=== PATIENT | female | born 1990 | race American Indian/Alaskan Native ===

== ENCOUNTER 2016-10-28 01:16 | Inpatient (IN) | payer OTHER ==
[2016-10-28] MEDS: Albuterol-Ipratrop 3 mg / 0.5 (3 ml) UD IH SCH ×2 (02:15→02:30)
[2016-10-28] MEDS ORDERED: Albuterol-Ipratrop 3 mg / 0.5 (3 ml) UD ONE (02:26)
[2016-10-28 02:39] LABS: BASO % 0.7 % (0.0-2.0); EOS # 0.1 K/uL (0.0-0.7); EOS % 0.9 % (0.0-4.0); HEMATOCRIT 27.3 % (34.0-47.0); LYMPH # 1.8 K/uL (1.0-4.3); LYMPH % 26.8 % (20.0-40.0); MEAN CELL VOLUME 73.5 fL (81.0-99.0); MEAN CORPUSCULAR HGB CONC 29.9 g/dL (33.0-37.0); MEAN PLATELET VOLUME 8.8 fL (7.2-11.7); MONO # 0.6 K/uL (0.0-0.8); MONO % 9.3 % (0.0-10.0); RED CELL DISTRIBUTION WIDTH 20.1 % (11.5-14.5); WHITE BLOOD COUNT 6.6 K/uL (4.8-10.8)
[2016-10-28 02:41] LABS: CHLORIDE 108 mmol/L (98-107); POTASSIUM 3.8 mmol/L (3.6-5.2); SODIUM 144 mmol/L (132-148)
[2016-10-28 02:43] LABS: ALKALINE PHOSPHATASE 65 U/L (38-126); ALT/SGPT 9 U/L (9-52); AST/SGOT 22 U/L (14-36); BILIRUBIN,TOTAL 0.4 mg/dL (0.2-1.3); BLOOD UREA NITROGEN 7 mg/dL (7-17); CARBON DIOXIDE 21 mmol/L (22-30); GFR AFRICAN-AMERICAN > 60; TOTAL PROTEIN 8.2 g/dL (6.3-8.3)
[2016-10-28 02:44] LABS: CALCIUM 8.6 mg/dl (8.6-10.4); GLUCOSE,RANDOM 107 mg/dL (65-105)
[2016-10-28] MEDS ORDERED: Sodium Chloride 0.9% 1,000 ML IV STA (03:28)
[2016-10-28] MEDS ORDERED: Sodium Chloride 0.9% 1,000 ML ONE ×2 (03:34→05:44)
[2016-10-28] MEDS ORDERED: Sodium Chloride 0.9% 1,000 ML IV ONE (05:35)
--- NOTE | 2016-10-28 05:37 | C.PDOC ---
History Of Present Illness 26 year old female presents to the ED with complaints of chest tightness and shortness of breath since 11pm last night. Patient notes a history of chronic bronchitis but the current symptoms "feel different." She denies prolonged palpitations, recent travel, leg pain, injury, or the use of OCP. Time Seen by Provider: 10/28/16 01:40 Chief Complaint (Nursing): Chest Pain History Per: Patient History/Exam Limitations: no limitations Onset/Duration Of Symptoms: Hrs Current Symptoms Are (Timing): Still Present Recent travel outside of the [place]: No Past Medical History Reviewed: Historical Data, Nursing Documentation, Vital Signs Vital Signs: Last Vital Signs Temp 98.7 F 10/28/16 06:30 Pulse 107 H 10/28/16 06:30 Resp 20 10/28/16 06:30 BP 108/72 10/28/16 06:30 Pulse Ox 100 10/28/16 06:30 - Medical History PMH: Anemia, Bronchitis Family History: States: Unknown Family Hx - Social History Hx Alcohol Use: No Hx Substance Use: No - Immunization History Hx Tetanus Toxoid Vaccination: No Hx Influenza Vaccination: No Hx Pneumococcal Vaccination: No Review Of Systems Constitutional: Negative for: Fever, Chills, Weakness Eyes: Negative for: Vision Change Cardiovascular: Positive for: Other (chest tightness). Negative for: Palpitations, Light Headedness Respiratory: Positive for: Shortness of Breath. Negative for: Cough Gastrointestinal: Negative for: Nausea, Vomiting Neurological: Negative for: Weakness, Numbness Physical Exam - Physical Exam Appears: Non-toxic, No Acute Distress Skin: Warm, Dry Head: Atraumatic Eye(s): bilateral: PERRL, Conjunctiva Pale Oral Mucosa: Moist Throat: Normal Neck: Supple Chest: Symmetrical, No Deformity Cardiovascular: Rhythm Regular, No Murmur, Other (tachycardic ) Respiratory: Decreased Breath Sounds (slightly minimally dimished breath sounds ), No Rales, No Rhonchi, No Wheezing Gastrointestinal/Abdominal: Soft, No Tenderness Rectal: Other (brown stool, no gross blood ) Extremity: Normal ROM, No Tenderness Neurological/Psych: Oriented x3 Gait: Steady ED Course And Treatment - Laboratory Results Result Diagrams: 10/28/16 02:29 10/28/16 02:29 ECG Rhythm: Sinus Rhythm (100 bpm) O2 Sat by Pulse Oximetry: 100 (room air ) Pulse Ox Interpretation: Normal Progress Note: Duonebs given x 2. Pt became tachycardic at 137. Labs were performed. Patient has a hemoglobin (Hb) 8.2, patient was hydrated with fluids with improvement of tachycardia. Pt will be admitted for symptomatic anemia - Physician Consult Information Time Consulting Physician Contacted: 04:30 Physician Contacted: Erwin Brock Outcome Of Conversation: Plan for admission was discussed with Dr. Brock and agrees to admit patient to services. Disposition - Disposition Disposition: HOME/ ROUTINE Disposition Time: 05:35 Condition: STABLE - Clinical Impression Clinical Impression: Symptomatic anemia - Scribe Statement The provider has reviewed the documentation as recorded by the Scribe Vanessa Boyer All medical record entries made by the Scribe were at my direction and personally dictated by me. I have reviewed the chart and agree that the record accurately reflects my personal performance of the history, physical exam, medical decision making, and the department course for this patient. I have also personally directed, reviewed, and agree with the discharge instructions and disposition. Decision To Admit - Pt Status Changed To: Hospital Disposition Of: Inpatient - Admit Certification Admit to Inpatient:: After my assessment, the patient will require hospitalization for at least two midnights. This is because of the severity of symptoms shown, intensity of services needed, and/or the medical risk in this patient being treated as an outpatient. - InPatient: Physician Admission Certification: I certify that this patient requires 2 or more midnights of care for the following reason:: Symptomatic anemia - . Bed Request Type: Regular Patient Diagnosis: Symptomatic anemia
--- NOTE | 2016-10-28 06:34 | CP.PCM.HP ---
<Jeremiah Markham - Last Filed: 10/28/16 07:36> History of Present Illness - History of Present Illness History of Present Illness: CC: Chest pain and SOB HPI: Mrs Tom is a 26 yo female who presents to the ED with worsening chest pain and SOB which started last night at 11pm. The chest pain is midsternal and reproducible with palpation. It does not radiate. She rated the pain 10/10. She states that she was sitting down when the pain began. She stated that cold air exacerbates her symptoms. She admits to diaphoresis and being lightheaded. She denies fever, chills, abd pain, headache, nausea, vomiting, diarrhea. She also endorsed a cough which started about a week ago. It is productive with yellow phlegm; she thinks she may have occasionally seen streaks of blood in the phlegm. PMD: n/a PMHx: syncopal episode 2006, 2011; hx of heart murmur that is no longer present PSHx: n/a Medications: n/a Allergies: seasonal FamHx:Mother is anemic and has a heart murmur; Father has asthma/bronchitis; Sister has a heart murmur SocialHx: denies smoking, denies drinking; Lives with uncle at his home; Moved to [place] from [place] in August 2016; Currently not working ObgynHx: last menstrual period concluded 7 days ago; occasional heavy bleeder; no control Present on Admission - Present on Admission Any Indicators Present on Admission: No Review of Systems - Review of Systems Systems not reviewed;Unavailable: Unstable Vital Signs - Constitutional Constitutional: absent: Chills, Fever, Headache - EENT Eyes: absent: Blurred Vision, Change in Vision Ears: absent: Ear Pain Nose/Mouth/Throat: absent: Sore Throat - Cardiovascular Cardiovascular: Chest Pain, Chest Pain at Rest, Diaphoresis, Dyspnea, Palpitations, Rapid Heart Rate. absent: Irregular Heart Rhythm, Leg Edema, Pedal Edema - Respiratory Respiratory: Cough, Dyspnea. absent: Wheezing - Gastrointestinal Gastrointestinal: absent: Abdominal Pain, Diarrhea, Nausea, Vomiting - Genitourinary Genitourinary: absent: Dysuria - Menstruation Menstruation: Menses 1-7 Days - Musculoskeletal Musculoskeletal: absent: Muscle Cramps, Muscle Weakness - Integumentary Integumentary: absent: Bleeding Lesions - Neurological Neurological: absent: Behavioral Changes, Headaches - Psychiatric Psychiatric: absent: Behavioral Changes Past Patient History - Past Social History Smoking Status: Never Smoked - PULMONARY Hx Bronchitis: Yes - PSYCHIATRIC Hx Substance Use: No Meds Allergies/Adverse Reactions: Allergies Allergy/AdvReac Type Severity Reaction Status Date / Time Penicillins Allergy Verified 10/28/16 01:26 Physical Exam - Constitutional Appears: Well, Non-toxic, No Acute Distress - Head Exam Head Exam: NORMAL INSPECTION - Eye Exam Eye Exam: EOMI, Normal appearance Pupil Exam: PERRL - ENT Exam ENT Exam: Mucous Membranes Moist, Normal Exam - Neck Exam Neck exam: Positive for: Full Rom, Normal Inspection - Respiratory Exam Respiratory Exam: Clear to Auscultation Bilateral, NORMAL BREATHING PATTERN. absent: Rales, Rhonchi, Wheezes - Cardiovascular Exam Cardiovascular Exam: Tachycardia, REGULAR RHYTHM, +S1, +S2. absent: Systolic Murmur - GI/Abdominal Exam GI & Abdominal Exam: Normal Bowel Sounds, Soft. absent: Tenderness - Rectal Exam Rectal Exam: Deferred - Extremities Exam Extremities exam: Positive for: normal inspection. Negative for: calf tenderness, pedal edema, tenderness - Neurological Exam Neurological exam: Alert, Oriented x3 - Psychiatric Exam Psychiatric exam: Normal Affect, Normal Mood - Skin Skin Exam: Dry, Intact, Normal Color, Warm Results - Vital Signs Recent Vital Signs: Last Vital Signs Temp 98.8 F 10/28/16 06:18 Pulse 101 H 10/28/16 06:18 Resp 20 10/28/16 06:18 BP 109/73 10/28/16 06:18 Pulse Ox 99 10/28/16 06:18 - Labs Result Diagrams: 10/28/16 02:29 10/28/16 02:29 Labs: Laboratory Results - last 24 hr 10/28/16 05:36 Blood Type AB POSITIVE Antibody Screen Negative Assessment & Plan (1) Symptomatic anemia Assessment and Plan: Hgb 8.2 FamHx of anemia FOBT negative ferrous sulfate 325mg po daily TIBC, Iron Sat, Ferritin, f/u TSH, ESR, C-reactive protein Tramadol 25mg q8 po prn Status: Acute (2) Shortness of breath Assessment and Plan: Prior visits to hospital for bronchitis chronic cough with production of phlegm On nasal cannula 2L O2sat 99%, currently not c/o of SOB Chest xray in ED possibly indicative of bronchitis Received Duoneb and Prednisone in ED Azithromax 250mg po daily albuterol 2.5mg inh q6 prn prednisone 40mg po daily Status: Acute (3) Prophylactic measure Assessment and Plan: Pepcid 20mg po daily Regular Diet activity as tolerated Status: Acute <Erwin Brock P - Last Filed: 11/01/16 06:27> Results - Vital Signs Recent Vital Signs: Last Vital Signs Temp 97.9 F 10/29/16 15:00 Pulse 70 10/29/16 15:00 Resp 20 10/29/16 15:00 BP 99/65 L 10/29/16 15:00 Pulse Ox 98 10/29/16 15:00 - Labs Result Diagrams: 10/29/16 07:09 10/29/16 07:09 Attending/Attestation - Attestation I have personally seen and examined this patient.: Yes I have fully participated in the care of the patient.: Yes I have reviewed all pertinent clinical information: Yes
[2016-10-28] MEDS ORDERED: Albuterol 0.083% Inhal Sol (2.5 mg/3 mL) UD INH PRN (07:33)
[2016-10-28 10:54] VITALS: RESP 20
[2016-10-28] MEDS: Tramadol 25 mg PO SCH ×3 (10:55→17:14)
--- NOTE | 2016-10-28 11:09 | RAD ---
HISTORY: chest pain, SOB COMPARISON: No prior. TECHNIQUE: Chest PA and lateral FINDINGS: LUNGS: The lungs are well inflated and clear. PLEURA: No significant pleural effusion identified. No pneumothorax apparent. CARDIOVASCULAR: Normal. OSSEOUS STRUCTURES: No significant abnormalities. VISUALIZED UPPER ABDOMEN: Normal. OTHER FINDINGS: None. IMPRESSION: No active pulmonary disease.
[2016-10-28 11:45] LABS: IRON 16 ug/dL (37-170)
[2016-10-28 12:18] LABS: THYROID STIMULATING HORMONE 0.21 mIU/L (0.46-4.68)
--- NOTE | 2016-10-28 21:18 | CP.PCM.PN ---
<Carlos Sanchez E - Last Filed: 10/28/16 21:30> Subjective - Date & Time of Evaluation Date of Evaluation: 10/28/16 Time of Evaluation: 10:30 - Subjective Subjective: Medicine Note (PGY 1) : Dr. Kate's service Patient was seen and examined at bedside. Patient reports fatigue, sob, chest pain and cough but denies nausea, vomiting, abd pain, diarrhea, fever, chills. Patient tolerates diet. Objective - Vital Signs/Intake and Output Vital Signs (last 24 hours): Temp Pulse Resp BP Pulse Ox 98 F 122 H 20 122/71 99 10/28/16 16:01 10/28/16 16:01 10/28/16 16:01 10/28/16 16:01 10/28/16 16:01 Intake and Output: 10/28/16 10/29/16 18:59 06:59 Intake Total 400 Balance 400 - Medications Medications: Current Medications Albuterol Sulfate (Albuterol 0.083% Inhal Viji (2.5 Mg/3 Ml) Ud) 2.5 mg INH RQ6 PRN PRN Reason: Shortness of Breath Aspirin (Aspirin) 325 mg PO DAILY [facility] Azithromycin (Zithromax) 250 mg PO DAILY [facility] Last Admin: 10/28/16 10:56 Dose: 250 mg Famotidine (Pepcid) 20 mg PO DAILY [facility] Last Admin: 10/28/16 10:55 Dose: 20 mg Ferrous Sulfate (Feosol) 325 mg PO DAILY [facility] Last Admin: 10/28/16 10:56 Dose: 325 mg Heparin Sodium (Porcine) (Heparin) 5,000 units SC Q8 [facility] Last Admin: 10/28/16 21:08 Dose: Not Given Pneumococcal Polyvalent Vaccine (Pneumovax 23 Vaccine) 0.5 ml IM .ONCE ONE Stop: 10/30/16 10:01 Prednisone (Prednisone Tab) 40 mg PO DAILY [facility] Last Admin: 10/28/16 10:56 Dose: 40 mg Tramadol HCl (Ultram) 25 mg PO TID [facility] Last Admin: 10/28/16 17:14 Dose: Not Given - Constitutional Appears: Well, No Acute Distress - Eye Exam Eye Exam: EOMI, Normal appearance - ENT Exam ENT Exam: Mucous Membranes Moist, Normal Exam - Respiratory Exam Respiratory Exam: Clear to Ausculation Bilateral, NORMAL BREATHING PATTERN - Cardiovascular Exam Cardiovascular Exam: REGULAR RHYTHM, +S1, +S2 - GI/Abdominal Exam GI & Abdominal Exam: Soft, Normal Bowel Sounds - Extremities Exam Extremities Exam: Normal Capillary Refill, Normal Inspection - Neurological Exam Neurological Exam: Alert, Awake, Oriented x3 - Psychiatric Exam Psychiatric exam: Normal Affect, Normal Mood - Skin Skin Exam: Dry, Normal Color, Warm Assessment and Plan (1) Symptomatic anemia Assessment & Plan: Hgb 8.2, Hematocrit: 27.3 FamHx of anemia FOBT negative ferrous sulfate 325mg po daily TIBC : 398, Iron Sat: 4 Ferritin: 3.6 TSH : 0.21, Pending ESR, C-reactive protein Tramadol 25mg q8 po prn Monitor H/H Status: Acute (2) Shortness of breath Assessment & Plan: Prior visits to hospital for bronchitis chronic cough with production of phlegm On nasal cannula 2L O2sat 99%, currently not c/o of SOB Chest xray in ED possibly indicative of bronchitis Received Duoneb and Prednisone in ED Azithromax 250mg po daily albuterol 2.5mg inh q6 prn prednisone 40mg po daily Status: Acute (3) Chest pain Assessment & Plan: EKG : NSR AMA (Negative x2) Alleviated with Tramadol 25 mg PO tid Status: Acute (4) Prophylactic measure Assessment & Plan: Pepcid 20mg po daily Heparin 5000 units SC Q8H Regular Diet activity as tolerated SCD Status: Acute <Patel Kate - Last Filed: 12/04/16 15:57> Objective - Vital Signs/Intake and Output Vital Signs (last 24 hours): Temp Pulse Resp BP Pulse Ox 97.9 F 70 20 99/65 L 98 10/29/16 15:00 10/29/16 15:00 10/29/16 15:00 10/29/16 15:00 10/29/16 15:00 - Labs Labs: 10/29/16 07:09 10/29/16 07:09 Attending/Attestation - Attestation I have personally seen and examined this patient.: Yes I have fully participated in the care of the patient.: Yes I have reviewed all pertinent clinical information, including history, physical exam and plan: Yes Notes (Text): Patient seen and examined with the resident. Agree with the residents evaluation, assessment and plan. Symptomatic anemia Shortness of breath - acute on chronic bronchitis. Chest pain
[2016-10-28] MEDS ORDERED: Tramadol 25 mg PO PRN (22:51)
[2016-10-29 03:40] VITALS: O2SAT 98
[2016-10-29 07:20] LABS: HEMATOCRIT 25.5 % (34.0-47.0); MEAN CELL VOLUME 73.8 fL (81.0-99.0); MEAN CORPUSCULAR HEMOGLOBIN 22.2 pg (27.0-31.0); MEAN CORPUSCULAR HGB CONC 30.1 g/dL (33.0-37.0); RED CELL DISTRIBUTION WIDTH 20.4 % (11.5-14.5); WHITE BLOOD COUNT 8.3 K/uL (4.8-10.8)
[2016-10-29 07:37] LABS: CHLORIDE 108 mmol/L (98-107); SODIUM 141 mmol/L (132-148)
[2016-10-29 07:39] LABS: BILIRUBIN,TOTAL 0.4 mg/dL (0.2-1.3); GFR AFRICAN-AMERICAN > 60
[2016-10-29 07:40] LABS: ALKALINE PHOSPHATASE 57 U/L (38-126); ALT/SGPT 13 U/L (9-52); AST/SGOT 17 U/L (14-36); BLOOD UREA NITROGEN 4 mg/dL (7-17); CARBON DIOXIDE 23 mmol/L (22-30); GLUCOSE,RANDOM 100 mg/dL (65-105); TOTAL PROTEIN 7.4 g/dL (6.3-8.3)
[2016-10-29 07:41] LABS: CALCIUM 8.8 mg/dl (8.6-10.4); MAGNESIUM 2.1 mg/dL (1.6-2.3); PHOSPHOROUS 3.7 mg/dL (2.5-4.5)
[2016-10-29 09:27] LABS: MONO # 0.3 K/uL (0.0-0.8)
--- NOTE | 2016-10-29 14:04 | CARD ---
APPROVED REPORT EKG Measurement Heart [id number] <Conclusion> Normal sinus rhythm Normal ECG
[2016-10-29 16:09] VITALS: BP 99/65; PULSE 70; TEMP 97.9
[2016-10-30] MEDS ORDERED: Pneumococcal 23-Valent Vaccine IM ONE (10:00)
--- NOTE | 2016-10-30 21:38 | CP.PCM.DIS ---
<Jeremiah Markham - Last Filed: 10/30/16 21:34> Provider - Provider Date of Admission: 10/28/16 05:22 Attending physician: Erwin Brock MD Primary care physician: Does not have one Time Spent in preparation of Discharge (in minutes): 45 Diagnosis - Discharge Diagnosis (1) Symptomatic anemia Status: Acute (2) Shortness of breath Status: Acute (3) Prophylactic measure Status: Acute Hospital Course - Lab Results Lab Results: Most Recent Lab Values WBC 8.3 K/uL (4.8-10.8) 10/29/16 07:09 RBC 3.45 Mil/uL (3.80-5.20) L 10/29/16 07:09 Hgb 7.7 g/dL (11.0-16.0) L 10/29/16 07:09 Hct 25.5 % (34.0-47.0) L 10/29/16 07:09 MCV 73.8 fL (81.0-99.0) L 10/29/16 07:09 MCH 22.2 pg (27.0-31.0) L 10/29/16 07:09 MCHC 30.1 g/dL (33.0-37.0) L 10/29/16 07:09 RDW 20.4 % (11.5-14.5) H 10/29/16 07:09 Plt Count 241 K/uL (130-400) 10/29/16 07:09 MPV 9.0 fL (7.2-11.7) 10/29/16 07:09 Neut % (Auto) 73.0 % (50.0-75.0) 10/29/16 07:09 Lymph % (Auto) 24.0 % (20.0-40.0) 10/29/16 07:09 [place] % (Auto) 3.0 % (0.0-10.0) 10/29/16 07:09 Eos % (Auto) 0.0 % (0.0-4.0) 10/29/16 07:09 Baso % (Auto) 0.0 % (0.0-2.0) 10/29/16 07:09 Neut # 6.1 K/uL (1.8-7.0) 10/29/16 07:09 Lymph # 2.0 K/uL (1.0-4.3) 10/29/16 07:09 [place] # 0.3 K/uL (0.0-0.8) 10/29/16 07:09 Eos # 0.0 K/uL (0.0-0.7) 10/29/16 07:09 Baso # 0.0 K/uL (0.0-0.2) 10/29/16 07:09 ESR 37 mm/hr (0-20) H 10/28/16 11:27 D-Dimer, Quantitative < 200 ng/mlDDU (0-243) 10/28/16 02:29 Sodium 141 mmol/L (132-148) 10/29/16 07:09 Potassium 4.0 mmol/L (3.6-5.2) 10/29/16 07:09 Chloride 108 mmol/L (98-107) H 10/29/16 07:09 Carbon Dioxide 23 mmol/L (22-30) 10/29/16 07:09 Anion Gap 13 (10-20) 10/29/16 07:09 BUN 4 mg/dL (7-17) L 10/29/16 07:09 Creatinine 0.6 MG/DL (0.7-1.2) L 10/29/16 07:09 Est GFR ( Amer) > 60 10/29/16 07:09 Est GFR (Non-Af Amer) > 60 10/29/16 07:09 Random Glucose 100 mg/dL (65-105) 10/29/16 07:09 Calcium 8.8 mg/dl (8.6-10.4) 10/29/16 07:09 Phosphorus 3.7 mg/dL (2.5-4.5) 10/29/16 07:09 Magnesium 2.1 mg/dL (1.6-2.3) 10/29/16 07:09 Iron 16 ug/dL (37-170) L 10/28/16 11:27 TIBC 398 ug/dL (250-450) 10/28/16 11:27 % Saturation 4 (20-55) L 10/28/16 11:27 Ferritin 3.6 ng/mL 10/28/16 11:27 Total Bilirubin 0.4 mg/dL (0.2-1.3) 10/29/16 07:09 AST 17 U/L (14-36) 10/29/16 07:09 ALT 13 U/L (9-52) 10/29/16 07:09 Alkaline Phosphatase 57 U/L (38-126) 10/29/16 07:09 Total Creatine Kinase 52 U/L (30-135) 10/29/16 17:39 CK-MB (Mass) < 0.22 ng/mL (0.0-3.38) 10/29/16 17:39 Troponin I < 0.0120 ng/mL (0.00-0.120) 10/28/16 02:29 Troponin I, Quant < 0.0120 ng/mL (0.00-0.120) 10/29/16 17:39 C-React Prot High Sens 0.16 mg/L (1.00-3.00) L 10/28/16 11:27 Total Protein 7.4 g/dL (6.3-8.3) 10/29/16 07:09 Albumin 3.7 g/dL (3.5-5.0) 10/29/16 07:09 Globulin 3.7 gm/dL (2.2-3.9) 10/29/16 07:09 Albumin/Globulin Ratio 1.0 (1.0-2.1) 10/29/16 07:09 TSH 3rd Generation 0.21 mIU/L (0.46-4.68) L 10/28/16 11:27 Stool Occult Blood Negative (NEGATIVE) 10/28/16 04:59 Urine Opiates Screen Negative (NEGATIVE) 10/28/16 16:56 Urine Methadone Screen Negative (NEGATIVE) 10/28/16 16:56 Ur Barbiturates Screen Negative (NEGATIVE) 10/28/16 16:56 Ur Phencyclidine Scrn Negative (NEGATIVE) 10/28/16 16:56 Ur Amphetamines Screen Negative (NEGATIVE) 10/28/16 16:56 U Benzodiazepines Scrn Negative (NEGATIVE) 10/28/16 16:56 U Oth Cocaine Metabols Negative (NEGATIVE) 10/28/16 16:56 U Cannabinoids Screen Negative (NEGATIVE) 10/28/16 16:56 Blood Type AB POSITIVE 10/28/16 05:36 Antibody Screen Negative 10/28/16 05:36 - Hospital Course Hospital Course: HPI: Mrs Tom is a 26 yo female who presents to the ED with worsening chest pain and SOB which started last night at 11pm. The chest pain is midsternal and reproducible with palpation. It does not radiate. She rated the pain 10/10. She states that she was sitting down when the pain began. She stated that cold air exacerbates her symptoms. She admits to diaphoresis and being lightheaded. She denies fever, chills, abd pain, headache, nausea, vomiting, diarrhea. She also endorsed a cough which started about a week ago. It is productive with yellow phlegm; she thinks she may have occasionally seen streaks of blood in the phlegm. PMD: n/a PMHx: syncopal episode 2006, 2011; hx of heart murmur that is no longer present PSHx: n/a Medications: n/a Allergies: seasonal FamHx:Mother is anemic and has a heart murmur; Father has asthma/bronchitis; Sister has a heart murmur SocialHx: denies smoking, denies drinking; Lives with uncle at his home; Moved to [place] from [place] in August 2016; Currently not working ObgynHx: last menstrual period concluded 7 days ago; occasional heavy bleeder; no control Hospital Course: (1) Symptomatic anemia Hgb 8.2, Hematocrit: 27.3 FOBT negative ferrous sulfate 325mg po daily TIBC : 398, Iron Sat: 4 Ferritin: 3.6 TSH : 0.21, Pending ESR, C-reactive protein Tramadol 25mg q8 po prn Monitored H/H (2) Shortness of breath Prior visits to hospital for bronchitis chronic cough with production of phlegm On nasal cannula 2L O2sat 99%, currently not c/o of SOB Chest xray in ED possibly indicative of bronchitis Received Duoneb and Prednisone in ED Azithromax 250mg po daily albuterol 2.5mg inh q6 prn prednisone 40mg po daily (3) Chest pain EKG : NSR AMA (Negative x2) Alleviated with Tramadol 25 mg PO tid Discharge Exam - Head Exam Head Exam: NORMAL INSPECTION - Eye Exam Eye Exam: EOMI, Normal appearance, PERRL - ENT Exam ENT Exam: Mucous Membranes Moist - Neck Exam Neck exam: Full Rom - Respiratory Exam Respiratory Exam: NORMAL BREATHING PATTERN. absent: Rales, Rhonchi, Wheezes - Cardiovascular Exam Cardiovascular Exam: REGULAR RHYTHM, +S1, +S2 - GI/Abdominal Exam GI & Abdominal Exam: Normal Bowel Sounds. absent: Distended, Tenderness - Rectal Exam Rectal Exam: Deferred - Neurological Exam Neurological exam: Alert, Oriented x3, Reflexes Normal - Psychiatric Exam Psychiatric exam: Normal Affect, Normal Mood - Skin Skin Exam: Dry, Intact, Normal Color, Warm Discharge Plan - Discharge Medications Prescriptions: Albuterol HFA [Ventolin HFA 90 mcg/actuation (8 g)] 1 puff IH Q6 PRN #1 inhaler PRN Reason: Shortness Of Breath Ascorbic Acid [Vitamin C 250 mg Tab] 250 mg PO DAILY #30 tab Azithromycin [Z-Ubaldo] 250 mg PO DAILY #3 tab Docusate [Colace] 100 mg PO BID #60 cap Ferrous Sulfate [Feosol] 325 mg PO BID #60 tab - Follow Up Plan Condition: STABLE Disposition: HOME/ ROUTINE Instructions: Iron Supplements (By mouth), Albuterol (By breathing), Azithromycin (By mouth), Laxative, Stool Softeners (By mouth), Ascorbic Acid ( Vitamin C) (By mouth), Chest Pain (DC), Dyspnea (GEN), Anemia (DC) Additional Instructions: Patient is medically stable for discharge. Patient recommended to follow up with [facility] ([phone]) within one week for discharge. Patient recommended to see OB-PROCEDURE RN as outpatient for workup for menorrhagia. Patient will need repeat iron studies upon followup with PMD. New Prescription: 1) albuterol HFA 1puff [id number] prn for sob 2) Z-pack -> use as directed, and take yogurt with medication 3) Ferrous sulfate 325mg po bid (60/no refills) 4) Colace 100mg po BID (60/no refills) If symptoms return please return to ED. Referrals: Marii Adan MD [Staff Provider] - <Viktoria Thompson V - Last Filed: 10/31/16 00:23> Provider - Provider Date of Admission: 10/28/16 05:22 Attending physician: Erwin Brock MD Hospital Course - Lab Results Lab Results: Most Recent Lab Values WBC 8.3 K/uL (4.8-10.8) 10/29/16 07:09 RBC 3.45 Mil/uL (3.80-5.20) L 10/29/16 07:09 Hgb 7.7 g/dL (11.0-16.0) L 10/29/16 07:09 Hct 25.5 % (34.0-47.0) L 10/29/16 07:09 MCV 73.8 fL (81.0-99.0) L 10/29/16 07:09 MCH 22.2 pg (27.0-31.0) L 10/29/16 07:09 MCHC 30.1 g/dL (33.0-37.0) L 10/29/16 07:09 RDW 20.4 % (11.5-14.5) H 10/29/16 07:09 Plt Count 241 K/uL (130-400) 10/29/16 07:09 MPV 9.0 fL (7.2-11.7) 10/29/16 07:09 Neut % (Auto) 73.0 % (50.0-75.0) 10/29/16 07:09 Lymph % (Auto) 24.0 % (20.0-40.0) 10/29/16 07:09 [place] % (Auto) 3.0 % (0.0-10.0) 10/29/16 07:09 Eos % (Auto) 0.0 % (0.0-4.0) 10/29/16 07:09 Baso % (Auto) 0.0 % (0.0-2.0) 10/29/16 07:09 Neut # 6.1 K/uL (1.8-7.0) 10/29/16 07:09 Lymph # 2.0 K/uL (1.0-4.3) 10/29/16 07:09 [place] # 0.3 K/uL (0.0-0.8) 10/29/16 07:09 Eos # 0.0 K/uL (0.0-0.7) 10/29/16 07:09 Baso # 0.0 K/uL (0.0-0.2) 10/29/16 07:09 ESR 37 mm/hr (0-20) H 10/28/16 11:27 D-Dimer, Quantitative < 200 ng/mlDDU (0-243) 10/28/16 02:29 Sodium 141 mmol/L (132-148) 10/29/16 07:09 Potassium 4.0 mmol/L (3.6-5.2) 10/29/16 07:09 Chloride 108 mmol/L (98-107) H 10/29/16 07:09 Carbon Dioxide 23 mmol/L (22-30) 10/29/16 07:09 Anion Gap 13 (10-20) 10/29/16 07:09 BUN 4 mg/dL (7-17) L 10/29/16 07:09 Creatinine 0.6 MG/DL (0.7-1.2) L 10/29/16 07:09 Est GFR ( Amer) > 60 10/29/16 07:09 Est GFR (Non-Af Amer) > 60 10/29/16 07:09 Random Glucose 100 mg/dL (65-105) 10/29/16 07:09 Calcium 8.8 mg/dl (8.6-10.4) 10/29/16 07:09 Phosphorus 3.7 mg/dL (2.5-4.5) 10/29/16 07:09 Magnesium 2.1 mg/dL (1.6-2.3) 10/29/16 07:09 Iron 16 ug/dL (37-170) L 10/28/16 11:27 TIBC 398 ug/dL (250-450) 10/28/16 11:27 % Saturation 4 (20-55) L 10/28/16 11:27 Ferritin 3.6 ng/mL 10/28/16 11:27 Total Bilirubin 0.4 mg/dL (0.2-1.3) 10/29/16 07:09 AST 17 U/L (14-36) 10/29/16 07:09 ALT 13 U/L (9-52) 10/29/16 07:09 Alkaline Phosphatase 57 U/L (38-126) 10/29/16 07:09 Total Creatine Kinase 52 U/L (30-135) 10/29/16 17:39 CK-MB (Mass) < 0.22 ng/mL (0.0-3.38) 10/29/16 17:39 Troponin I < 0.0120 ng/mL (0.00-0.120) 10/28/16 02:29 Troponin I, Quant < 0.0120 ng/mL (0.00-0.120) 10/29/16 17:39 C-React Prot High Sens 0.16 mg/L (1.00-3.00) L 10/28/16 11:27 Total Protein 7.4 g/dL (6.3-8.3) 10/29/16 07:09 Albumin 3.7 g/dL (3.5-5.0) 10/29/16 07:09 Globulin 3.7 gm/dL (2.2-3.9) 10/29/16 07:09 Albumin/Globulin Ratio 1.0 (1.0-2.1) 10/29/16 07:09 TSH 3rd Generation 0.21 mIU/L (0.46-4.68) L 10/28/16 11:27 Stool Occult Blood Negative (NEGATIVE) 10/28/16 04:59 Urine Opiates Screen Negative (NEGATIVE) 10/28/16 16:56 Urine Methadone Screen Negative (NEGATIVE) 10/28/16 16:56 Ur Barbiturates Screen Negative (NEGATIVE) 10/28/16 16:56 Ur Phencyclidine Scrn Negative (NEGATIVE) 10/28/16 16:56 Ur Amphetamines Screen Negative (NEGATIVE) 10/28/16 16:56 U Benzodiazepines Scrn Negative (NEGATIVE) 10/28/16 16:56 U Oth Cocaine Metabols Negative (NEGATIVE) 10/28/16 16:56 U Cannabinoids Screen Negative (NEGATIVE) 10/28/16 16:56 Blood Type AB POSITIVE 10/28/16 05:36 Antibody Screen Negative 10/28/16 05:36 Attending/Attestation - Attestation I have personally seen and examined this patient.: Yes I have fully participated in the care of the patient.: Yes I have reviewed all pertinent clinical information, including history, physical exam and plan: Yes Notes (Text): This is late computer entry for 10/29/16. Patient seen, examined, and case discussed with day-time product development intern. Patient seen and examined with patient's mother at bedside. Patient permitted to speak in front of her mother regarding her medical information Patient reports history of iron deficiency anemia and was told in the past to take iron tablets to supplement iron stories. Patient also reports she has a history of heavy periods, using about 4-5 pads ( soaked), regular and recently finished her period last week. Patient reports she has never seen a fence builder before. Patient reports she is not sexually active. Patient offered pelvis/transvaginal US but refused. Patient's AMA X3 are negative. EKG: NSR. Patient's chest xray shows no active disease. UDS negative. Patient likely has acute bronchitis. Patient afebrile and has not white count. Discussed discharge order and discharge instructions with patient and day-time resident. Patient advised to establish care at the [facility] ( [phone]). Patient recommended to follow up with [facility] ) within one week for discharge. Patient recommended for referral for OB-PROCEDURE RN as outpatient for workup for menorrhagia. Patient advised with iron supplement that it will make her stool look black and to take with orange juice to increase absorption and stool softeners to avoid constipation Patient will need repeat iron studies upon followup with PMD. New Prescription: 1) albuterol HFA 1puff [id number] prn for sob 2) Z-pack -> use as directed, and take yogurt with medication 3) Ferrous sulfate 325mg po bid (60/no refills) 4) Colace 100mg po BID (60/no refills) Discharge Diagnose 1) Bronchitis-->Chest xray negative; Albuterol PRN SOB, Z-pack 2) Chest pain-->resolved 3) Iron Deficiency Anemia-->f/u in the clinic, repeat iron studies, further workup and ob-product assembler referral for menorrhagia This is a summary of patient's hospitalization. Please see EMR for further details.
--- NOTE | 2016-11-05 12:44 | CARD ---
APPROVED REPORT EKG Measurement Heart [id number] <Conclusion> Normal sinus rhythm with sinus arrhythmia Normal ECG
== END 2016-10-29 19:28 | disposition home or self-care (01) | DRG 97 ==
LOC: C.ER 01:16 → C.9E 05:22 → C.6T 06:00
PROVIDERS: ADMIT Internal Medicine; ATTEND Internal Medicine
DX: J20.9 Acute bronchitis, unspecified (principal); D50.9 Iron deficiency anemia, unspecified; J42 Unspecified chronic bronchitis; N92.0 Excessive and frequent menstruation with regular cycle; R07.89 Other chest pain

== ENCOUNTER 2016-11-19 11:23 | Emergency (ER) | payer OTHER ==
[2016-11-19 11:27] VITALS: TEMP 98.6; O2SAT 100
--- NOTE | 2016-11-19 14:21 | RAD ---
PROCEDURE: CHEST RADIOGRAPH, 1 VIEW HISTORY: Chest pain COMPARISON: None available. FINDINGS: LUNGS: Mild venous congestion. PLEURA: No pneumothorax or pleural fluid seen. CARDIOVASCULAR: Normal. OSSEOUS STRUCTURES: No significant abnormalities. VISUALIZED UPPER ABDOMEN: Normal. OTHER FINDINGS: None. IMPRESSION: Mild venous congestion.
--- NOTE | 2016-11-19 14:32 | C.PDOC ---
History Of Present Illness 26 y/o female presents to the ED with complaints of chest pain, palpitations and generalized weakness. Pt with history of anemia with similar symptoms, admitted here recently with blood transfusion. Pt states she hasn't followed up since then. Since her last menses symptoms returned. She is concerned she has anemia again. Denies fever, chills, vomiting, dizziness or any other complaints. Time Seen by Provider: 11/19/16 11:41 Chief Complaint (Nursing): Chest Pain History Per: Patient History/Exam Limitations: no limitations Onset/Duration Of Symptoms: Days Current Symptoms Are (Timing): Still Present Severity: Moderate Modifying Factors: None Alleviating Factors: None Recent travel outside of the [place]: No Past Medical History Reviewed: Historical Data, Nursing Documentation, Vital Signs Vital Signs: Last Vital Signs Temp 98.6 F 11/19/16 11:26 Pulse 76 11/19/16 17:19 Resp 16 11/19/16 17:19 BP 113/69 11/19/16 17:19 Pulse Ox 100 11/19/16 17:19 - Medical History PMH: Anemia, Bronchitis Family History: States: Unknown Family Hx - Social History Hx Alcohol Use: No Hx Substance Use: No - Immunization History Hx Tetanus Toxoid Vaccination: No Hx Influenza Vaccination: No Hx Pneumococcal Vaccination: No Review Of Systems Except As Marked, All Systems Reviewed And Found Negative. Constitutional: Positive for: Weakness. Negative for: Fever, Chills Cardiovascular: Positive for: Chest Pain, Palpitations Respiratory: Negative for: Shortness of Breath Gastrointestinal: Negative for: Vomiting Neurological: Negative for: Dizziness Physical Exam - Physical Exam Appears: Non-toxic, No Acute Distress Skin: Warm, Dry, No Rash Head: Atraumatic, Normacephalic Eye(s): bilateral: Conjunctiva Pale (mild) Neck: Normal, Normal ROM, Supple Chest: Symmetrical, Tenderness (anterior chest wall) Cardiovascular: Rhythm Regular, No Murmur Respiratory: Normal Breath Sounds, No Rales, No Rhonchi, No Wheezing Gastrointestinal/Abdominal: Normal Exam, Soft, No Tenderness Extremity: Normal ROM, No Pedal Edema Neurological/Psych: Oriented x3, Normal Speech, Normal Cognition ED Course And Treatment - Laboratory Results Result Diagrams: 11/19/16 14:52 11/19/16 14:52 O2 Sat by Pulse Oximetry: 100 (room air) Pulse Ox Interpretation: Normal - Other Rad CXR X-Ray: Viewed By Me, Read By Radiologist Interpretation: Accession No. : [id number]. Patient Name / ID : MILLIE ESTRADA / [id number]. Exam Date : 11/19/2016 14:09:54 ( Approved ). Study Comment : Sex / Age : F / 26Y. Creator : Bryan Junior MD. Dictator : Bryan Junior MD. Senior Engineering Associate : Record Press Tender : Bryan Junior MD. Approver2 : Report Date : 11/19/2016 14:20:14. My Comment : . PROCEDURE: CHEST RADIOGRAPH, 1 VIEW. HISTORY: Chest pain. COMPARISON: None available. FINDINGS: LUNGS: Mild venous congestion. PLEURA: No pneumothorax or pleural fluid seen. CARDIOVASCULAR: Normal. OSSEOUS STRUCTURES: No significant abnormalities. VISUALIZED UPPER ABDOMEN: Normal. OTHER FINDINGS: None. IMPRESSION: Mild venous congestion. Progress Note: Plan: EKG, CXR, labs, UA, IV fluids. On re-evaluation, patient feels better and will be d/c home with PMD follow up. Disposition - Disposition Referrals: [facility] [Outside] [facility] [Outside] Disposition: HOME/ ROUTINE Disposition Time: 17:07 Condition: STABLE Additional Instructions: Follow up in Clinic within 1-2 days. Return to ED if feel worse. Prescriptions: Ibuprofen [Motrin Tab] 400 mg PO Q8 #30 tab Instructions: Costochondritis (ED) - Clinical Impression Clinical Impression: Chest wall pain - PA / SALES OUTFITTER / Resident Statement MD/DO has reviewed & agrees with the documentation as recorded. - Scribe Statement The provider has reviewed the documentation as recorded by the Diegoibe Ariel Hewitt All medical record entries made by the Scribe were at my direction and personally dictated by me. I have reviewed the chart and agree that the record accurately reflects my personal performance of the history, physical exam, medical decision making, and the department course for this patient. I have also personally directed, reviewed, and agree with the discharge instructions and disposition.
[2016-11-19 14:57] LABS: BASO # 0.1 K/uL (0.0-0.2); BASO % 1.9 % (0.0-2.0); EOS % 0.2 % (0.0-4.0); HEMOGLOBIN 9.4 g/dL (11.0-16.0); LYMPH # 0.8 K/uL (1.0-4.3); LYMPH % 26.2 % (20.0-40.0); MEAN CELL VOLUME 76.2 fL (81.0-99.0); MEAN CORPUSCULAR HGB CONC 30.2 g/dL (33.0-37.0); MEAN PLATELET VOLUME 8.6 fL (7.2-11.7); MONO # 0.2 K/uL (0.0-0.8); MONO % 5.5 % (0.0-10.0); NEUT # 2.1 K/uL (1.8-7.0); NEUT % 66.2 % (50.0-75.0); RBC 4.09 Mil/uL (3.80-5.20)
[2016-11-19 15:00] LABS: WHITE BLOOD COUNT 3.2 K/uL (4.8-10.8)
[2016-11-19 15:14] LABS: INR 1.2; PROTHROMBIN TIME 13.9 SECONDS (9.7-12.2)
[2016-11-19 15:17] LABS: ALBUMIN 3.8 g/dL (3.5-5.0)
[2016-11-19 15:18] LABS: HCG,QUALITATIVE URINE NEGATIVE (NEGATIVE)
[2016-11-19 15:19] LABS: D DIMER < 200 ng/mlDDU (0-243)
[2016-11-19 15:20] LABS: AST/SGOT 16 U/L (14-36); GFR AFRICAN-AMERICAN > 60; GFR NON-AFRICAN AMERICAN > 60
[2016-11-19 15:21] LABS: ALT/SGPT 17 U/L (9-52); CALCIUM 8.5 mg/dl (8.6-10.4)
[2016-11-19 15:24] LABS: SQUAMOUS EPITHIAL 1 /hpf (0-5); URINE BILIRUBIN NEGATIVE (NEGATIVE); URINE BLOOD NEGATIVE (NEGATIVE); URINE CLARITY Clear (Clear); URINE COLOR Yellow (YELLOW); URINE GLUCOSE (UA) NORMAL (Normal); URINE LEUKOCYTE ESTERASE NEG Leu/uL (Negative); URINE NITRATE NEGATIVE (NEGATIVE); URINE PROTEIN NEGATIVE (NEGATIVE); URINE UROBILINOGEN NORMAL mg/dL (0.2-1.0)
[2016-11-19 15:30] LABS: CK-MB < 0.22 ng/mL (0.0-3.38)
[2016-11-19 15:33] LABS: BLOOD UREA NITROGEN 2 mg/dL (7-17)
[2016-11-19 17:20] VITALS: BP 113/69; PULSE 76; RESP 16
--- NOTE | 2016-11-21 08:59 | CARD ---
APPROVED REPORT EKG Measurement Heart [id number] <Conclusion> Normal sinus rhythm with sinus arrhythmia Nonspecific T wave abnormality Abnormal ECG
== END 2016-11-19 17:20 | disposition home or self-care (01) ==
LOC: C.ER 11:23
DX: R07.89 Other chest pain (principal)

== ENCOUNTER 2017-01-10 15:38 | Emergency (ER) | payer OTHER ==
[2017-01-10 15:55] VITALS: RESP 18; O2SAT 98
--- NOTE | 2017-01-10 18:02 | C.PDOC ---
Time Seen by Provider: 01/10/17 16:53 Chief Complaint (Nursing): Cough, Cold, Congestion History Per: Patient Onset/Duration Of Symptoms: Days (about 2 weeks) Current Symptoms Are (Timing): Still Present Associated Symptoms: Sore Throat, Cough, Nasal Congestion Severity: Moderate Recent travel outside of the [place]: No Additional History Per: Prior Records Past Medical History Reviewed: Historical Data, Nursing Documentation, Vital Signs Vital Signs: Last Vital Signs Temp 98.7 F 01/10/17 15:52 Pulse 62 01/10/17 15:52 Resp 18 01/10/17 15:52 BP 118/79 01/10/17 15:52 Pulse Ox 98 01/10/17 15:52 - Medical History PMH: Anemia, Bronchitis Surgical History: No Surg Hx Family History: States: Unknown Family Hx - Social History Hx Tobacco Use: No Hx Alcohol Use: No Hx Substance Use: No - Immunization History Hx Tetanus Toxoid Vaccination: No Hx Influenza Vaccination: No Hx Pneumococcal Vaccination: No Review Of Systems Except As Marked, All Systems Reviewed And Found Negative. Constitutional: Negative for: Fever, Weakness ENT: Positive for: Nose Congestion, Throat Pain Cardiovascular: Positive for: Chest Pain Respiratory: Positive for: Cough. Negative for: Shortness of Breath, Hemoptysis , Sputum Gastrointestinal: Negative for: Vomiting, Abdominal Pain Genitourinary: Negative for: Dysuria Musculoskeletal: Negative for: Neck Pain, Back Pain, Leg Pain Skin: Negative for: Rash Neurological: Negative for: Weakness, Numbness, Seizures, Altered Mental Status Physical Exam - Physical Exam Appears: Non-toxic, No Acute Distress Skin: Normal Color, Warm, Dry, No Rash Head: Atraumatic, Normacephalic Eye(s): bilateral: Normal Inspection, PERRL, EOMI Oral Mucosa: Moist, No Drooling, No Trismus Throat: Erythema, No Drooling, No Mass Neck: Normal ROM, Supple Chest: Symmetrical, No Deformity, Tenderness, No Ecchymosis, No Subcutaneous Emphysema Cardiovascular: Rhythm Regular Respiratory: Normal Breath Sounds, No Accessory Muscle Use Gastrointestinal/Abdominal: Soft, No Tenderness Back: No CVA Tenderness Extremity: Normal ROM, No Pedal Edema, No Calf Tenderness Extremity: Bilateral: Normal Color And Temperature Neurological/Psych: Oriented x3, Normal Speech, Normal Motor, Normal Sensation ED Course And Treatment - Laboratory Results Urine POC: Negative ECG: Interpreted By Me, Viewed By Me ECG Rhythm: Sinus Rhythm ECG Interpretation: No Acute Changes Rate From EC O2 Sat by Pulse Oximetry: 98 Pulse Ox Interpretation: Normal - Radiology CXR: Interpreted by Me, Viewed By Me CXR Interpretation: Yes: No Acute Disease Reassessment Condition: Improved Medical Decision Making Medical Decision Making: PERC rule negative. Disposition Counseled Patient/Family Regarding: Studies Performed, Diagnosis, Need For Followup, Rx Given - Disposition Referrals: [facility] [Outside] Disposition: HOME/ ROUTINE Disposition Time: 18:02 Condition: IMPROVED Additional Instructions: Follow up in the clinic. Return to the ER if you develop shortness of breath, worsening of symptoms or if you have any other concerns. Prescriptions: Benzonatate 200 mg PO TID PRN #15 capsule PRN Reason: Cough Ibuprofen [Motrin Tab] 400 mg PO TID PRN #30 tab PRN Reason: Pain, Moderate (4-7) Instructions: Upper Respiratory Infection (ED) Forms: [facility] (Arabic) - Clinical Impression Clinical Impression: Upper respiratory infection
[2017-01-10 18:13] VITALS: BP 100/68; PULSE 74; TEMP 98.3
--- NOTE | 2017-01-11 08:05 | RAD ---
HISTORY: Cough, chest pain COMPARISON: Portable chest 11/19/2016. TECHNIQUE: Chest PA and lateral FINDINGS: LUNGS: No acute infiltrate is appreciate bilaterally. History volume appears improved in the interval. PLEURA: No significant pleural effusion identified. No pneumothorax apparent. CARDIOVASCULAR: Normal. OSSEOUS STRUCTURES: No significant abnormalities. VISUALIZED UPPER ABDOMEN: A few gas-filled bowel loops in the left upper quadrant abdomen. OTHER FINDINGS: None. IMPRESSION: No acute cardiopulmonary disease is appreciated. Improved history volume is noted in the interval.
--- NOTE | 2017-01-13 10:21 | CARD ---
APPROVED REPORT EKG Measurement Heart [id number] <Conclusion> Normal sinus rhythm Normal ECG
== END 2017-01-10 18:25 | disposition home or self-care (01) ==
LOC: C.ER 15:38
DX: J06.9 Acute upper respiratory infection, unspecified (principal)